=== PATIENT | male | born 1945 | race Two or more races ===

== ENCOUNTER → 2017-09-14 | Outpatient (CLI) | payer OTHER ==
[2017-09-14 09:34] LABS: Basophils # (auto) 0.1 uL; Basophils % (auto) 1.2 % (0.0-2.0); Eosinophils # (auto) 0.4 uL; Eosinophils % (auto) 6.1 % (0.0-7.0); Hematocrit 26.2 % (41.0-53.0); Hemoglobin 8.8 g/dL (13.5-17.5); Lymphocytes # (auto) 1.2 uL; Lymphocytes % (auto) 18.1 % (10.0-50.0); Mean Corpuscular Hemoglobin 32.5 pg (28.0-32.0); Mean Corpuscular Hgb Conc. 33.6 g/dL (32.0-36.0); Mean Corpuscular Volume 96.8 fL (80.0-100.0); Monocytes # (auto) 0.6 uL; Monocytes % (auto) 8.9 % (0.0-12.0); Neutrophils # (auto) 4.2 uL; Neutrophils % (auto) 65.7 % (37.0-80.0); Platelet Count (auto) 257 10^3/uL (140-450); Red Blood Cells 2.71 10^6/uL (4.5-5.90); White Blood Cell 6.4 10^3/uL (4.4-10.8)
[2017-09-14 09:49] LABS: Urine Bacteria NONE SEEN /hpf (None Seen); Urine Blood TRACE /uL (Negative); Urine Specific Gravity 1.013 (1.001-1.035); Urine WBC <1 /hpf (0 - 3)
[2017-09-14 09:56] LABS: INR 0.97 (0.9-1.15); Partial Thromboplastin Time 25.8 sec (22.64-33.71); Prothrombin Time 10.6 sec (9.37-12.3)
[2017-09-14 10:02] LABS: Albumin 3.1 g/dL (3.4-5.0); BUN/Creatinine Ratio 5.4; Bilirubin, Total 0.3 mg/dL (0.2-1.0); Calcium 7.4 mg/dL (8.5-10.1); Potassium 3.9 mmol/L (3.5-5.1); Total Protein 7.4 g/dL (6.4-8.2)
== END | disposition home or self-care (01) ==
LOC: LAB 09:01
PROVIDERS: ATTEND Orthopaedic Surgery
DX: S83.271A Complex tear of lateral meniscus, current injury, right knee, initial encounter (principal); M94.261 Chondromalacia, right knee; Z79.01 Long term (current) use of anticoagulants; X58.XXXA Exposure to other specified factors, initial encounter; Y93.89 Activity, other specified; Y92.89 Other specified places as the place of occurrence of the external cause; Y99.8 Other external cause status
CPT/HCPCS: 36415; 80053; 81001; 85025; 85610; 85730

== ENCOUNTER → 2023-08-31 | Outpatient (CLI) | payer MEDICAID ==
[2023-08-31 10:06] LABS: Basophils # (auto) 0.1 10 ^3/uL (0-0.2); Basophils % (auto) 1.2 % (0.0-2.0); Eosinophils # (auto) 0.4 10 ^3/uL (0-0.8); Eosinophils % (auto) 5.8 % (0.0-7.0); Hematocrit 25.6 % (41.0-53.0); Lymphocytes # (auto) 1.2 10 ^3/uL (0.4-5.4); Lymphocytes % (auto) 16.5 % (10.0-50.0); Mean Corpuscular Hemoglobin 32.8 pg (28.0-32.0); Mean Corpuscular Volume 93.6 fL (80.0-100.0); Monocytes # (auto) 0.5 10 ^3/uL (0-1.3); Monocytes % (auto) 7.7 % (0.0-12.0); Neutrophils # (auto) 4.8 10 ^3/uL (1.6-8.6); Neutrophils % (auto) 68.8 % (37.0-80.0); Red Blood Cells 2.74 10^6/uL (4.5-5.90)
[2023-08-31 10:15] LABS: Urine Bacteria NONE SEEN /hpf (None Seen); Urine Blood TRACE /uL (Negative); Urine Clarity Clear (Clear); Urine Color Yellow (Yellow); Urine Protein, UAD 1+ (Negative); Urine Specific Gravity 1.007 (1.001-1.035); Urine Urobilinogen Normal (Negative); Urine WBC <1 /hpf (0 - 3); Urine pH 7.5 (5.0-8.0)
[2023-08-31 10:47] LABS: Alanine Aminotransferase 11 U/L (7-40); Albumin 3.7 g/dL (3.2-4.8); Alkaline Phosphatase 186 U/L (46-116); Anion Gap 8 (5-15); Aspartate Aminotransferase 15 U/L (13-40); BUN/Creatinine Ratio 4.9 (10.0-20.0); Blood Urea Nitrogen 43 mg/dL (9-23); Calcium 8.9 mg/dL (8.5-10.1); Carbon Dioxide 30 mmol/L (20-30); Chloride 100 mmol/L (98-107); Glucose 96 mg/dL (74-106); LDL Cholesterol 115 mg/dL (< 100); Potassium 3.4 mmol/L (3.5-5.1); Sodium 138 mmol/L (136-145); Triglycerides 103 mg/dL (< 150)
[2023-08-31 10:48] LABS: Bilirubin, Total 0.4 mg/dL (0.2-1.0); Cholesterol 194 mg/dL (< 200); HDL Cholesterol 48 mg/dL (40-59); Total Protein 6.7 g/dL (5.7-8.2)
[2023-08-31 12:24] LABS: Uric Acid 4.3 mg/dL (3.7-9.2)
[2023-08-31 12:27] LABS: Magnesium 1.7 mg/dL (1.6-2.6)
[2023-08-31 13:56] LABS: Free T3 2.4 pg/mL (2.3-4.2); Prostate Specific Antigen 0.26 ng/mL (0.0-4.0)
[2023-08-31 13:57] LABS: Free T4 (Free Thyroxine) 0.7 ng/dL (0.89-1.76); T3 Total 1.21 ng/mL (0.60-1.81)
[2023-08-31 13:59] LABS: Folate (Folic Acid) 21.96 ng/mL (>5.38)
== END | disposition home or self-care (01) ==
LOC: LAB 09:43
PROVIDERS: ATTEND Internal Medicine
DX: R78.89 Finding of other specified substances, not normally found in blood (principal); E78.41 Elevated Lipoprotein(a); R68.89 Other general symptoms and signs; R73.09 Other abnormal glucose; E61.2 Magnesium deficiency; R94.6 Abnormal results of thyroid function studies; E79.0 Hyperuricemia without signs of inflammatory arthritis and tophaceous disease; R82.991 Hypocitraturia; E85.9 Amyloidosis, unspecified; R82.90 Unspecified abnormal findings in urine; R82.79 Other abnormal findings on microbiological examination of urine; D51.9 Vitamin B12 deficiency anemia, unspecified
CPT/HCPCS: 36415; 80053; 80061; 81001; 82306; 82607; 82746; 83036; 83735; 83970; 84100; 84153; 84439; 84443; 84480; 84481; 84550; 85025; 87086

== ENCOUNTER 2025-11-08 12:16 | Inpatient (IN) | payer BC, MEDICAID ==
[~2025-11-08] VITALS: Ht 160 cm; Wt 48.4 kg
[2025-11-08 12:27] VITALS: PULSE 74; RESP 14; O2SAT 100
--- NOTE | 2025-11-08 12:33 | ED.PDOC ---
History of Present Illness HPI Comments 80M BIBA w/ prior MHx of ESRD(M,W,F), Uses O2 at home of 2L, HTN, Renal Failure and the c/c of SOB. EMS report on being called by pt's for SOB. When EMS arrived on scene the reports on the pt having SOB and recently getting diagnosed w/ pneumonia 1 week ago. states that the pt went to the dialysis center today and refused to do dialysis on the pt due from having diminished left sided lung sound and was sent home prompting the to call 911. EMS state that when they arrived on scene the pt's O2 tank was at 4L NC at 100%, and en route was at 2L NC at 100%. Pt notes on having a cough. Denies any symptoms at this time. Patient denies any CP, dizziness, numbness, weakness, tingling, fever, chills, or recent fall. Chief Complaint: Shortness of Breath Time Seen by MD: 12:30 Reviewed Notes: Nurses Notes, Rotary Helper Notes, Medications, Allergies Allergies: Coded Allergies: NO KNOWN ALLERGIES (Unverified , 11/08/25) Information Source: Patient, Emergency Med Personnel Mode of Arrival: EMS Severity: Moderate Timing: Days Duration: Since onset, Days Prehospital treatment: None Past Medical History PAST MEDICAL HISTORY: ESRD (M, W, F), HTN Past Medical History (Other): Uses 2L O2 which is baseline, Renal Failure Surgical History: Denies all surgeries Family History Family History: Reviewed,noncontributory to illness, Unknown Social History Smoker: Non-Smoker Alcohol: Denies ETOH Use Drugs: Denies Drug Use Lives In: Home Constitutional: denies: chills, diaphoresis, fatigue, fever, malaise, sweats, weakness, others EENTM: denies: blurred vision, double vision, ear bleeding, ear discharge, ear drainage, ear pain, ear ringing, eye pain, eye redness, hearing loss, mouth pain, mouth swelling, nasal discharge, nose bleeding, nose congestion, nose pain, photophobia, tearing, throat pain, throat swelling, voice changes, others Respiratory: reports: cough, shortness of breath; denies: hemoptysis, orthopnea, SOB at rest, SOB with excertion, stridor, wheezing, others Cardiovascular: denies: chest pain, dizzy spells, diaphoresis, Dyspnea on exertion, edema, irregular heart beat, left arm pain, lightheadedness, palpitations, PND, syncope, others Gastrointestinal: denies: abdomen distended, abdominal pain, blood streaked bowels, constipated, diarrhea, dysphagia, difficulty swallowing, hematemesis, melena, nausea, poor appetite, poor fluid intake, rectal bleeding, rectal pain, vomiting, others Genitourinary: denies: burning, dysuria, flank pain, frequency, hematuria, incontinence, penile discharge, penile sore, pain, testicle pain, testicle swelling, urgency, others Neurological: denies: dizziness, fainting, headache, left sided numbness, left sided weakness, numbness, paresthesia, pre-existing deficit, right sided numbness, right sided weakness, seizure, speech problems, tingling, tremors, weakness, others Musculoskeletal: denies: back pain, gout, joint pain, joint swelling, muscle pain, muscle stiffness, neck pain, others Integumetry: denies: bruises, change in color, change in hair/nails, dryness, laceration, lesions, lumps, rash, wounds, others Allergic/Immunocompromised: denies: Difficulty Healing, Frequent Infections, Hives, Itching, others Hematologic/Lymphatic: denies: anemia, blood clots, easy bleeding, easy bruising, swollen glands, others Endocrine: denies: excessive hunger, excessive sweating, excessive thirst, excessive urination, flushing, intolerance to cold, intolerance to heat, unexplained weight gain, unexplained weight loss, others Psychiatric: denies: anxiety, bipolar disorder, depression, hopeless, panic disorder, schizophrenia, sleepless, suicidal, others All Other Systems: Reviewed and Negative Physical Exam Exam Comments diminished left sided lung sound General Appearance: No Apparent Distress, Normal HEENT: Normal ENT Inspection, Pharynx Normal, TMs Normal Neck: Full Range of Motion, Non-Tender, Normal, Normal Inspection Respiratory: Chest Non-Tender, Lungs Clear, No Accessory Muscle Use, No Respiratory Distress, Normal Breath Sounds Cardiovascular: No Edema, No JVD, No Murmur, No Gallop, Normal Peripheral Pulses, Regular Rate/Rhythm Breast Exam: Deferred Gastrointestinal: No Organomegaly, Non Tender, No Pulsatile Mass, Normal Bowel Sounds, Soft Genitalia: Deferred Pelvic: Deferred Rectal: Deferred Extremities: No calf tenderness, Normal capillary refill, Normal inspection, Normal range of motion, Non-tender, No pedal edema Musculoskeletal : Apperance: Normal Neurologic: Alert, flavor tank tender II-XII nml as Tested, No Motor Deficits, Normal Affect, Normal Mood, No Sensory Deficits Cerebellar Function: Normal Reflexes: Normal Skin: Dry, Normal Color, Warm Lymphatic: No Adenopathy Was a procedure done? Was a procedure done?: No Differential Dx Considerations may include: Cough, URI, pneumonia, CHF exacerbation, collapsed lung, X-Ray, Labs, Meds, VS Vital Signs Date Time Temp Pulse Resp B/P (MAP) Pulse Ox O2 Delivery O2 Flow Rate FiO2 11/08/25 13:19 184/84 11/08/25 12:27 74 14 100 Nasal Cannula* 4 36 11/08/25 12:27 97.6 74 17 174/85 (114) 100 97.6 11/08/25 12:20 98.4 77 20 157/73 100 98.4 Lab Test 11/08/25 12:44 Range/Units White Blood Count 6.9 4.4-10.8 10^3/uL Red Blood Count 2.52 L 4.5-5.90 10^6/uL Hemoglobin 8.7 L 13.5-17.5 g/dL Hematocrit 25.6 L 41.0-53.0 % Mean Corpuscular Volume 101.4 H 80.0-100.0 fL Mean Corpuscular Hemoglobin 34.5 H 28.0-32.0 pg Mean Corpuscular Hemoglobin Concent 34.0 32.0-36.0 g/dL Red Cell Distribution Width 14.7 H 11.8-14.3 % Platelet Count 342 140-450 10^3/uL Mean Platelet Volume 6.5 L 6.9-10.8 fL Neutrophils (%) (Auto) 68.2 37.0-80.0 % Lymphocytes (%) (Auto) 11.1 10.0-50.0 % Monocytes (%) (Auto) 13.7 H 0.0-12.0 % Eosinophils (%) (Auto) 5.0 0.0-7.0 % Basophils (%) (Auto) 2.0 0.0-2.0 % Neutrophils # (Auto) 4.7 1.6-8.6 10 ^3/uL Lymphocytes # (Auto) 0.8 0.4-5.4 10 ^3/uL Monocytes # (Auto) 0.9 0-1.3 10 ^3/uL Eosinophils # (Auto) 0.3 0-0.8 10 ^3/uL Basophils # (Auto) 0.1 0-0.2 10 ^3/uL Nucleated Red Blood Cells 0.1 % Sodium Level 139 136-145 mmol/L Potassium Level 4.3 3.5-5.1 mmol/L Chloride Level 102 98-107 mmol/L Carbon Dioxide Level 25 20-31 mmol/L Anion Gap 12 5-15 Blood Urea Nitrogen 65 H 9-23 mg/dL Creatinine 12.10 *H 0.700-1.30 mg/dL Glomerular Filtration Rate Calc 4 >90 mL/min BUN/Creatinine Ratio 5.4 L 10.0-20.0 Serum Glucose 80 74-106 mg/dL Calcium Level 9.5 8.7-10.4 mg/dL Total Bilirubin < 0.2 L 0.2-1.0 mg/dL Aspartate Amino Transferase (AST) 18 13-40 U/L Alanine Aminotransferase (ALT) 14 7-40 U/L Alkaline Phosphatase 104 46-116 U/L Total Protein 5.7 5.7-8.2 g/dL Albumin 3.0 L 3.2-4.8 g/dL Current Medications Medications (Trade) Dose Ordered Sig/Eboni Route Start Time Stop Time Status Last Admin Amlodipine Besylate (Norvasc Tablet) 5 mg ONCE ONCE PO 11/08/25 13:15 11/08/25 13:16 DC 11/08/25 13:19 X-Ray, Labs, Meds, VS Comment Patient will be admitted for shortness of breath and pneumonia, failed outpatient treatment Recommend dialysis for next available appointment Patient hemodynamically stable Patient be given azithromycin and Rocephin, breathing treatments, Time of 1ST Reevaluation: 13:00 Reevaluation 1ST: Unchanged Patient Education/Counseling: Diagnosis, Treatment, Prognosis Family Education/Counseling: No Family Present SEPSIS Sepsis Screen Physician Orders Chest Xray 1 View (11/08/25 12:35) Vital Signs Date Time Temp Pulse Resp B/P (MAP) Pulse Ox O2 Delivery O2 Flow Rate FiO2 11/08/25 13:19 184/84 11/08/25 12:27 74 14 100 Nasal Cannula* 4 36 11/08/25 12:27 97.6 74 17 174/85 (114) 100 97.6 11/08/25 12:20 98.4 77 20 157/73 100 98.4 Laboratory Tests Test 11/08/25 12:44 White Blood Count 6.9 10^3/uL (4.4-10.8) Medications Medications Dose Ordered Sig/Eboni Route Start Time Stop Time Status Last Admin Dose Admin Amlodipine Besylate 5 mg ONCE ONCE PO 11/08/25 13:15 11/08/25 13:16 DC 11/08/25 13:19 Departure 1 Departure Time of Disposition: 13:59 Impression: Primary Impression: Shortness of breath Additional Impressions: Pneumonia Qualified Codes: J18.9 - Pneumonia, unspecified organism End stage renal disease Disposition: ADMITTED INPATIENT Condition: Stable Discharged With: Self Critical Care Note Critical Care Time?: No Stability Stability form required: No Heart Score Heart Score: Heart Score Response (Comments) Value History N/A 0 EKG N/A 0 Age N/A 0 Risk Factors N/A 0 Troponin N/A 0 Total 0 I personally scribed for KIERAN WELLER ([email or web address]) on 11/08/25 at 12:33. Electronically submitted by Cyrus Jacinto ([email or web address]). KIERAN WELLER Nov 08, 2025 12:33
[2025-11-08 12:52] LABS: Hematocrit 25.6 % (41.0-53.0); Hemoglobin 8.7 g/dL (13.5-17.5); Mean Corpuscular Hemoglobin 34.5 pg (28.0-32.0); Mean Corpuscular Volume 101.4 fL (80.0-100.0); Nucleated Red Blood Cells % 0.1 %
[2025-11-08 13:09] LABS: Alanine Aminotransferase 14 U/L (7-40); Albumin 3.0 g/dL (3.2-4.8); Alkaline Phosphatase 104 U/L (46-116); Anion Gap 12 (5-15); BUN/Creatinine Ratio 5.4 (10.0-20.0); Bilirubin, Total < 0.2 mg/dL (0.2-1.0); Blood Urea Nitrogen 65 mg/dL (9-23); Calcium 9.5 mg/dL (8.7-10.4); Carbon Dioxide 25 mmol/L (20-31); Chloride 102 mmol/L (98-107); Glucose 80 mg/dL (74-106); Potassium 4.3 mmol/L (3.5-5.1); Sodium 139 mmol/L (136-145); Total Protein 5.7 g/dL (5.7-8.2)
--- NOTE | 2025-11-08 13:28 | DVH ---
CHEST RADIOGRAPH INDICATION: sob TECHNIQUE: Single frontal view of the chest was obtained COMPARISON: XR CHEST 1 VIEW on DOS: 04/16/24 FINDINGS: Lines and Tubes: None Lungs: No focal consolidation. Pleura: No effusion. No pneumothorax. Cardiomediastinal contours: Cardiomegaly Bones: No acute osseous abnormality. IMPRESSION: Cardiomegaly with mild CHF
[2025-11-08] MEDS: ALBUTEROL SULF 2.5 MG/0.5ML(0.5%) NEB SOLN ONE (14:27)
[2025-11-08] MEDS: IPRATROPIUM BROM 0.5 MG/2.5ML INH SOL NEB ONE (14:27)
[2025-11-08] MEDS: IPRATROPIUM BROM 0.5 MG/2.5ML INH SOL ONE (14:27)
[2025-11-08] MEDS: ALBUTEROL SULF 2.5 MG/0.5ML(0.5%) NEB SOLN NEB ONE (14:27)
--- NOTE | 2025-11-08 14:42 | DVHHPRES ---
History of Present Illness Resident Creating Document: FLETCHER GRIFFIN RESIDENT History of Present Illness Dawson Yoo, a 80-year-old male with history of ESRD/renal failure on peritoneal dialysis, peripheral neuropathy, chronic hypoxic respiratory failure home O? at 2?L at baseline, HTN, GERD presents via EMS for shortness of breath after reports worsening SOB and recent left lower lobe pneumonia diagnosis; patient refused dialysis today due to diminished left lung sounds, was sent home by Dr. Ambriz's clinic, prompting EMS call; currently on 2?L NC with SpO? 100%, notes cough, denies chest pain, dizziness, weakness, fever, chills, or other symptoms. PMHx: ESRD/renal failure on peritoneal dialysis, peripheral neuropathy, chronic hypoxic respiratory failure home O? at 2?L at baseline, HTN, GERD PSHx: Denies all surgeries Family history: Reviewed, noncontributory to illness, Unknown Social history: Patient is a non-smoker, denies alcohol and drug use, and lives at home with and father. Review of Systems Constitutional: Yes: Chills, Sweats, Malaise; No: Fever, Weakness, Other Eyes: No: Pain, Vision change, Conjunctivae inflammation, Eyelid inflammation, Other, Redness ENT: No: Ear pain, Ear discharge, Nose pain, Nose discharge, Nose congestion, Mouth pain, Mouth swelling, Throat pain, Throat swelling, Other Respiratory: Cough, Shortness of breath; No: Dry, SOB with excertion, Wheezing, Hemoptysis, Pleuritic Pain, Sputum, Wheezing, Other Cardiovascular: No: Chest Pain, Palpitations, Orthopnea, Paroxysmal Noc. Dyspnea, Edema, Lt Headedness, Other Gastrointestinal: No: Nausea, Vomiting, Abdominal Pain, Diarrhea, Constipation, Melena, Hematochezia, Other Genitourinary: No Dysuria, No Frequency, No Incontinence, No Hematuria, No Retention, No Other Musculoskeletal: No: other, neck pain, shoulder pain, arm pain, back pain, hand pain, leg pain, foot pain Skin: No: Rash, Lesions, Jaundice, Bruising, Other Neurological: No: Weakness, Numbness, Incoordination, Change in speech, Confusion, Seizures, Other Allergies: Coded Allergies: NO KNOWN ALLERGIES (Unverified , 11/08/25) Medications Current Medications Medications Dose Ordered Sig/Eboni Route Start Time Stop Time Status Last Admin Dose Admin Sodium Chloride 1,000 ml @ 120 mls/hr Q8H20M IV 11/08/25 14:45 UNV Acetaminophen/ Hydrocodone Bitart 1 tab Q4HP PRN PO 11/08/25 14:45 UNV Docusate Sodium 100 mg BIDPRN PRN PO 11/08/25 14:45 UNV Acetaminophen 650 mg Q6HP PRN PO 11/08/25 14:45 UNV Morphine Sulfate 2 mg Q4HPRN PRN IV 11/08/25 14:45 UNV Nitroglycerin 0.4 mg Q5MINP PRN SL 11/08/25 14:45 UNV Morphine Sulfate 2 mg Q30M PRN IV 11/08/25 14:45 UNV Exam Vital Signs Vital Signs Date Time Temp Pulse Resp B/P (MAP) Pulse Ox O2 Delivery O2 Flow Rate FiO2 11/08/25 14:28 18 98 Nasal Cannula* 2 28 11/08/25 13:19 184/84 11/08/25 12:27 74 11/08/25 12:27 97.6 97.6 General Appearance: Alert, Oriented X3, Cooperative, mild distress HEENT: Atraumatic, PERRLA, EOMI, Mucous membr. moist/pink Respiratory: Normal air movement, Other (left lower lobes crackles, on 2 L nc) Cardiovascular: Regular rate, Normal S1, Normal S2, No murmurs Abdominal: Normal bowel sounds, Soft, No tenderness, No hepatospenomegaly, No masses Extremities: No clubbing, No cyanosis, No edema, Normal pulses, No tenderness/swelling Skin: No rashes, No breakdown, No significant lesion Neuro: Normal gait, Normal speech, Strength at 5/5 X4 ext, Normal tone, Sensation intact, Cranial nerves 3-12 NL, Reflexes 2+ Psych/Mental Status: Mental status NL, Mood NL Labs/Xrays Labs Test 11/08/25 12:44 Range/Units White Blood Count 6.9 4.4-10.8 10^3/uL Red Blood Count 2.52 L 4.5-5.90 10^6/uL Hemoglobin 8.7 L 13.5-17.5 g/dL Hematocrit 25.6 L 41.0-53.0 % Mean Corpuscular Volume 101.4 H 80.0-100.0 fL Mean Corpuscular Hemoglobin 34.5 H 28.0-32.0 pg Mean Corpuscular Hemoglobin Concent 34.0 32.0-36.0 g/dL Red Cell Distribution Width 14.7 H 11.8-14.3 % Platelet Count 342 140-450 10^3/uL Mean Platelet Volume 6.5 L 6.9-10.8 fL Neutrophils (%) (Auto) 68.2 37.0-80.0 % Lymphocytes (%) (Auto) 11.1 10.0-50.0 % Monocytes (%) (Auto) 13.7 H 0.0-12.0 % Eosinophils (%) (Auto) 5.0 0.0-7.0 % Basophils (%) (Auto) 2.0 0.0-2.0 % Neutrophils # (Auto) 4.7 1.6-8.6 10 ^3/uL Lymphocytes # (Auto) 0.8 0.4-5.4 10 ^3/uL Monocytes # (Auto) 0.9 0-1.3 10 ^3/uL Eosinophils # (Auto) 0.3 0-0.8 10 ^3/uL Basophils # (Auto) 0.1 0-0.2 10 ^3/uL Nucleated Red Blood Cells 0.1 % Sodium Level 139 136-145 mmol/L Potassium Level 4.3 3.5-5.1 mmol/L Chloride Level 102 98-107 mmol/L Carbon Dioxide Level 25 20-31 mmol/L Anion Gap 12 5-15 Blood Urea Nitrogen 65 H 9-23 mg/dL Creatinine 12.10 *H 0.700-1.30 mg/dL Glomerular Filtration Rate Calc 4 >90 mL/min BUN/Creatinine Ratio 5.4 L 10.0-20.0 Serum Glucose 80 74-106 mg/dL Calcium Level 9.5 8.7-10.4 mg/dL Total Bilirubin < 0.2 L 0.2-1.0 mg/dL Aspartate Amino Transferase (AST) 18 13-40 U/L Alanine Aminotransferase (ALT) 14 7-40 U/L Alkaline Phosphatase 104 46-116 U/L Total Protein 5.7 5.7-8.2 g/dL Albumin 3.0 L 3.2-4.8 g/dL SEPSIS Sepsis Screen Date sepsis recognized/suspect: Nov 08, 2025 Time Sepsis recognized/suspect: 1227 Recent Procedure: No On Antibiotic Therapy: No Respiratory Rate >20: No Heart Rate >90: No Temp<36 C (96.8 F) or >38.3 C: No SBP <90 or MAP <65 mmHG: No New Acute Mental Status Change: No Is the patient on CPAP, BIPAP,: No Physician Orders Chest Xray 1 View (11/08/25 12:35) Admit (11/08/25 14:33) Allergies (11/08/25 14:33) Code Status (11/08/25 14:33) Sodium Chloride 0.9% (11/08/25 14:45) Hydrocodone-Acet 5/325mg Tab (Lowry 5/32 (11/08/25 14:45) Docusate Sodium Capsule (Colace Capsule) (11/08/25 14:45) Complete Blood Count (11/09/25 04:00) Comprehensive Metabolic Panel (11/09/25 04:00) Npo (Nothing By Mouth) Diet (11/08/25 Dinner) Echo 2d Mode Cardiac Dop (11/08/25 14:33) Condition: Serious (11/08/25 14:33) Acetaminophen Tablet (Tylenol Tablet) (11/08/25 14:45) Morphine Sulfate Injection (11/08/25 14:45) Sequential Compression Device (11/08/25 ) Nitroglycerin Sublingual (Ntrostat Subli (11/08/25 14:45) Morphine Sulfate Injection (11/08/25 14:45) Oxygen By Nasal Cannula (11/08/25 14:33) Stat Ekg For Chest Pain (11/08/25 14:33) Notify Md Of Changes From Base (11/08/25 14:33) Detailer For 24 Hours (11/08/25 14:33) Emergency Dysrhythmia Protocol (11/08/25 14:33) Rhythm Strips Once Every Shift (11/08/25 14:33) Vital Signs Date Time Temp Pulse Resp B/P (MAP) Pulse Ox O2 Delivery O2 Flow Rate FiO2 11/08/25 14:28 18 98 Nasal Cannula* 2 28 11/08/25 13:19 184/84 11/08/25 12:27 74 14 100 Nasal Cannula* 4 36 11/08/25 12:27 97.6 74 17 174/85 (114) 100 97.6 11/08/25 12:20 98.4 77 20 157/73 100 98.4 Laboratory Tests Test 11/08/25 12:44 White Blood Count 6.9 10^3/uL (4.4-10.8) Medications Medications Dose Ordered Sig/Eboni Route Start Time Stop Time Status Last Admin Dose Admin Albuterol 2.5 mg ONCE ONCE NEB 11/08/25 14:00 11/08/25 14:14 DC 11/08/25 14:27 2.5 MG Amlodipine Besylate 5 mg ONCE ONCE PO 11/08/25 13:15 11/08/25 13:16 DC 11/08/25 13:19 5 MG Ipratropium [place] 0.5 mg ONCE ONCE NEB 11/08/25 14:00 11/08/25 14:14 DC 11/08/25 14:27 0.5 MG Assessment/Plan Assessment/Plan #community-acquired pneumonia: cough, chills, productive sputum, Left lower side, IV antibiotics to continue, sputum culture, rule out viral panel, Rule out possibility of underlying fluid overload state/ CHF with BNP and echo. #ESRD/renal failure on peritoneal dialysis: Follows Dr. Ambriz's group. presentin g creatinine 12. Denies any abdominal discomfort fever or chills. Passing stools. Minimal urine output urinalysis unremarkable. Patient on furosemide 80 mg daily. #acute on chronic hypoxic respiratory failure: home O? at 2?L at baseline, presented with 4L NC. #HTNsive Urgency: Presented with systolic blood pressure of 180s, blood pressure 130/80 or below. Continue antihypertensives. #essential hypertension, uncontrolled: Home medications include lisinopril 20 mg ,amlodipine 10 mg, benazepril 10 . #GERD: At home omeprazole 40 mg, continue oral famotidine. #Anemia of chronic disease: Due to ESRD/ CKD, check TSH, baseline 8-9 of hemoglobin. #osteoarthritis: Age-related, as needed Tylenol. Baseline stability intact, independent for ADLs. #peripheral neuropathy: 300 mg gabapentin t.i.d. diclofenac gel. as needed Lowry 5, complaining of no significant pain. #Moderate protein energy malnutrition PUD prophylaxis: famotidine oral. DVT prophylaxis: SCDs only. not suitable for Lovenox, ideal is heparin. Barriers to discharge: Medical diagnosis and management in progress. Patient lives with family. Independent for ADL. PCP: Dr. Hicks. Specialist Relevant To Admission: nephrology consulted. Case discussed with Dr. Calixto Code Status: Full Code. Discussion needed for goals of care and care plan total 33 minutes bedside. Admitted at telemetry. Plan discussed with: Patient My Orders Orders - FLETCHER GRIFFIN Procedure Category Date Status Time Admit ADMIT 11/08/25 Transmitted 14:33 Allergies [facility] 11/08/25 In Process 14:33 Code Status CODE 11/08/25 Transmitted 14:33 Sodium Chloride 0.9% PHA 11/08/25 Logged 14:45 Hydrocodone-Acet PHA 11/08/25 Logged 5/325mg Tab (Lowry 14:45 Docusate Sodium PHA 11/08/25 Logged Capsule (Colace 14:45 Complete Blood Count LAB 11/09/25 Verified 04:00 Comprehensive LAB 11/09/25 Verified Metabolic Panel 04:00 Npo (Nothing By DIET 11/08/25 Transmitted Mouth) Diet Dinner Echo 2d Mode Cardiac US 11/08/25 Logged DOP 14:33 Condition: Serious [facility] 11/08/25 In Process 14:33 Acetaminophen Tablet PHA 11/08/25 Logged (Tylenol Tablet) 14:45 Morphine Sulfate [facility] 11/08/25 Logged Injection 14:45 Sequential [facility] 11/08/25 In Process Compression Device Nitroglycerin [facility] 11/08/25 Logged Sublingual (Ntrostat 14:45 Morphine Sulfate [facility] 11/08/25 Logged Injection 14:45 Oxygen By Nasal RT 11/08/25 Transmitted Cannula 14:33 Stat Ekg For Chest [facility] 11/08/25 In Process Pain 14:33 Notify Md Of Changes [facility] 11/08/25 In Process From Base 14:33 Detailer For [facility] 11/08/25 In Process 24 Hours 14:33 Emergency Dysrhythmia [facility] 11/08/25 In Process Protocol 14:33 Rhythm Strips Once [facility] 11/08/25 In Process Every Shift 14:33 Date of Service: Nov 08, 2025 Billing Provider: DIANNA CALIXTO MD Common Visit Codes: [id number] INP/OBS CARE (HIGH) Secondary Visit Codes: [id number] CARE PLAN 30 MINUTES FLETCHER GRIFFIN Nov 08, 2025 14:42
[2025-11-08] MEDS ORDERED: DOCUSATE SOD 100 MG CAP PO PRN (14:45)
[2025-11-08] MEDS ORDERED: ACETAMINOPHEN 325 MG TAB PO PRN (14:45)
[2025-11-08] MEDS ORDERED: MORPHINE SULFATE 4 MG/ML SYR/VIAL IV PRN (14:45)
[2025-11-08] MEDS ORDERED: NITROGLYCERIN 0.4 MG SL TAB SL PRN (14:45)
[2025-11-08] MEDS ORDERED: HYDROcodone-ACET 5/325MG TAB PO PRN (14:45)
[2025-11-08] MEDS: AZITHROMYCIN 250 MG TAB PO ONE (15:18)
[2025-11-08] MEDS: SODIUM CHLORIDE 0.9% 1,000 ML IV SCH (15:19)
[2025-11-08] MEDS: methylPREDNISolone SOD SUCC 125 MG/2 ML VL IV ONE (15:21)
[2025-11-08 16:42] VITALS: BP 148/78; PULSE 72; PULSE 74; RESP 16; RESP 18; TEMP 98.2; O2SAT 94
[2025-11-08 20:00] VITALS: PULSE 81
[2025-11-08 21:00] VITALS: BP 165/81; PULSE 78; RESP 19; TEMP 97.7; O2SAT 100
[2025-11-08 21:24] LABS: COVID19 ANTIGEN SOFIA FIA NEGATIVE (NEGATIVE)
[2025-11-08 21:40] LABS: Urine Protein, UAD 1+ (Negative)
[2025-11-09] VITALS (10 sets, daily range): BP systolic 143–176; BP diastolic 70–84; PULSE 68–84; RESP 18–20; TEMP 97.4–98.2; O2SAT 98–100
[2025-11-09] MEDS: ALBUMIN 25% 50 ML IV ONE (02:35)
[2025-11-09] MEDS: GABAPENTIN 300 MG CAP PO SCH (05:06)
[2025-11-09 06:12] LABS: Hematocrit 26.8 % (41.0-53.0); Hemoglobin 9.2 g/dL (13.5-17.5); Mean Corpuscular Hemoglobin 34.7 pg (28.0-32.0); Mean Corpuscular Volume 101.5 fL (80.0-100.0); Nucleated Red Blood Cells % 0.0 %
[2025-11-09 06:32] LABS: Alanine Aminotransferase 16 U/L (7-40); Alkaline Phosphatase 96 U/L (46-116); Anion Gap 13 (5-15); BUN/Creatinine Ratio 6.0 (10.0-20.0); Calcium 10.2 mg/dL (8.7-10.4); Carbon Dioxide 23 mmol/L (20-31); Chloride 101 mmol/L (98-107); Potassium 4.5 mmol/L (3.5-5.1); Sodium 137 mmol/L (136-145); Total Protein 6.3 g/dL (5.7-8.2)
[2025-11-09 06:33] LABS: Albumin 3.4 g/dL (3.2-4.8); Blood Urea Nitrogen 71 mg/dL (9-23); Glucose 121 mg/dL (74-106)
[2025-11-09 06:34] LABS: Bilirubin, Total < 0.2 mg/dL (0.2-1.0)
[2025-11-09] MEDS: Ensure HIGH Protein Chocolate 8oz Bottle PO SCH (08:00)
[2025-11-09] MEDS: LISINOPRIL 20 MG TAB PO SCH (09:13)
[2025-11-09] MEDS: FAMOTIDINE 20 MG TAB PO SCH (09:13)
[2025-11-09] MEDS ORDERED: AMLO1TAB22 PO (10:18)
[2025-11-09] MEDS ORDERED: LISI20TA56 PO (10:18)
[2025-11-09] MEDS: FUROSEMIDE 100 MG/10ML VIAL IV SCH (11:08)
--- NOTE | 2025-11-09 11:52 | DVHPNRES ---
Progress Note Date Seen: Nov 09, 2025 Resident Creating Document: WON KELLER RESIDENT Medical Necessity Reason Pt with a Central, PICC or Fol: No Subjective Review of Systems Mr. 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 The patient states cough began approximately a week prior and is associated with progressively worsening shortness of breath on exertion. He was evaluated by his guyline operator, Dr. Ambriz, who recommended he go to the emergency room for evaluation. He denies any fever, chest pain, nausea, vomiting, generalized weakness, malaise, and palpitations. On evaluation in the ED, he was afebrile, normocardic, normotensive, saturating 97% on 4L NC. The patient states he utilizes oxygen at home sometimes between 2-5L depending on needs. Initial labs macrocytic anemia, elevated creatinine and BUN. Chest xray reads cardiomegaly with mild CHF, however on observation there are mutifocal patches noted. The patient was admitted and started on IV antibiotics. PMHx: Hypertension and ESRD on peritoneal dialysis PSHx: Peritoneal dialysis catheter placement Allergies: Raymon Social: Denies any previous drug, alcohol, and tobacco use. States he lives with his and feels safe. 11/09/2025: Patient seen at bedside. He is AOx4, afebrile, normocardic, normotensive, saturating adequately on 2 L of O2. He is observed to have frequent wet cough. He denies any chest pain, fever, nausea, vomiting, and palpitations. Follow upo labs show elevated ESR, Creatinine, and BUN (however the latter are improved from initial values). Per nurse, overnight patient was hypertensive but this improved on reconciliation of home medications. He was evaluated by Dr. Harp who put orders to reinitiate PD. He will continue on IV antibiotics. Review of Systems: Constitutional: Denies weight loss, fever and chills. HEENT: Denies changes in vision and hearing. Respiratory: Refers shortness of breath and cough Cardiovascular: Denies chest discomfort or palpitations GI: Denies abdominal distention, abdominal pain, diarrhea : Denies dysuria and urinary frequency. Musculoskeletal: denies Skin: Denies rash and pruritus. Neurological: denies dizziness headache vision or hearing problems Objective vital signs Vital Sign Date Time Temp Pulse Resp B/P (MAP) Pulse Ox O2 Delivery O2 Flow Rate FiO2 11/09/25 11:08 168/84 11/09/25 09:14 98.0 78 20 100 98.0 11/09/25 08:00 Room Air* 2 N/A Nasal Cannula* Total Intake and Output 11/08/25 11/08/25 11/09/25 15:00 23:00 07:00 Intake Total 240 ml 200 ml Balance 240 ml 200 ml medications Current Medications Medications Dose Ordered Sig/Eboni Route Start Time Stop Time Status Last Admin Dose Admin Acetaminophen/ Hydrocodone Bitart 1 tab Q4HP PRN PO 11/08/25 14:45 Docusate Sodium 100 mg BIDPRN PRN PO 11/08/25 14:45 Acetaminophen 650 mg Q6HP PRN PO 11/08/25 14:45 Morphine Sulfate 2 mg Q4HPRN PRN IV 11/08/25 14:45 Nitroglycerin 0.4 mg Q5MINP PRN SL 11/08/25 14:45 Morphine Sulfate 2 mg Q30M PRN IV 11/08/25 14:45 Ceftriaxone Sodium 50 ml @ 100 mls/hr DAILY@09 IV 11/09/25 09:00 11/09/25 09:12 100 MLS/HR Amlodipine Besylate 10 mg DAILY PO 11/09/25 10:00 11/09/25 09:12 10 MG Azithromycin 250 ml @ 125 mls/hr DAILY IV 11/09/25 10:00 Furosemide 80 mg DAILY IV 11/09/25 10:00 11/09/25 11:08 80 MG Gabapentin 300 mg TID PO 11/09/25 06:00 11/09/25 05:06 300 MG Famotidine 20 mg Q12HR PO 11/09/25 10:00 Lisinopril 20 mg DAILY PO 11/09/25 10:00 Aspirin 81 mg DAILY PO 11/09/25 10:00 Enteral Nutritional Formula 240 ml TIDWM PO 11/09/25 08:00 Examination General: The patient alert and oriented in person place and time. Patient following commands HEENT: Normocephalic, atraumatic, normal reactive pupils, EOM intact, pink conjunctiva, pink moist mucous membrane Respiratory/pulmonary: During physical exam patient is heard to have wet cough, bilateral chest expansion, no pain on palpation of chest wall, decreased breath sounds mainly lower left lobe. Cardiovascular: Normal RRR, normal S1 and S2, no murmurs Abdomen: Presence peritoneal dialysis catheter, abdomen nondistended, normal bowel sounds, soft, there is no pain to palpation in any of the abdominal quadrants, no palpable masses. Extremities: No deformities, there is no peripheral edema present at the lower extremities, normal pulses Skin: No rashes or pruritus, there is no sacral edema present at this time. Neurological: Intact cranial nerves with no focal neurologic deficits laboratory and microbiology Laboratory Tests 11/09/25 05:25 Test 11/09/25 05:25 Range/Units Serum Glucose 121 H 74-106 mg/dL Problem List/Assessment/Plan Problem List/Assessment/Plan Assessment and Plan Pneumonia (gram positive/gram negative) - Ceftriaxone 1 g IV daily - Azithromycin 500 mg IV daily - Supplemental O2 as needed Acute hypoxic respiratory failure secondary to above - As above - Albuterol 1.25 mg medneb q6 hours PRN - Ipratropium 0.5 mg medned q6 hours PRN ESRD on peritoneal dialysis - Nephrology is on board, per Dr. 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 FULL CODE. Case discussed with Dr. Lima Plan discussed with: Patient, Other (Nurse) Visit Coding STANDARD RES Billing Provider: SHLOMO LIMA MD Date of Service if different f: Nov 09, 2025 Common Visit Codes: [id number] INP/OBS CARE(MOD) WON KELLER RESIDENT Nov 09, 2025 11:52
--- NOTE | 2025-11-09 13:21 | DVHINCON2 ---
Date of service: Nov 09, 2025 Referring Physician Luan Sepulveda Reason for Consultation Dialysis History of Present Illness 80 Y/O M with history of ESRD on PD, HTN, and recent recurrent Peritonitis secondary to MRSA infection presented with chief complaint of SOB which has been progressively worsening. He saw his primary tunnel elastic operator lockstitch Dr. Ambriz at his monthly PD clinic, and due to worsening SOB, and diminished breath sounds concerning for a non-resolving pneumonia he was asked to go to the ER. Hb: 9.2, K: 4.5 mmol/l. CXR shows pulmonary congestion. Nephrology consulted for maintenance of dialysis. Past Medical History ESRD on PD HTN Anemia Past Surgical History PD cath placement Allergies: Coded Allergies: NO KNOWN ALLERGIES (Unverified , 11/08/25) Home Meds Reported Medications Amlodipine Besylate (Amlodipine Besylate) 5 Mg Tab, 10 MG PO DAILY for 30 Days, MG 11/09/25 Lisinopril (Lisinopril) 20 Mg Tab, 20 MG PO DAILY for 30 Days, MG 11/09/25 Current Medications Current Medications Medications (Trade) Dose Ordered Sig/Eboni Route PRN Reason Start Time Stop Time Status Last Admin Sodium Chloride 1,000 ml @ 120 mls/hr Q8H20M IV 11/08/25 14:45 11/08/25 18:59 DC 11/08/25 15:19 Acetaminophen/ Hydrocodone Bitart ([place] 5/325MG Tab) 1 tab Q4HP PRN PO MODERATE PAIN (4-6 PAIN SCALE) 11/08/25 14:45 Docusate Sodium (Colace Capsule) 100 mg BIDPRN PRN PO FOR CONSTIPATION 11/08/25 14:45 Acetaminophen (Tylenol Tablet) 650 mg Q6HP PRN PO PAIN SCALE 1-3 OR TEMP>100.4 11/08/25 14:45 Morphine Sulfate 2 mg Q4HPRN PRN IV SEVERE PAIN (7-10 PAIN SCALE) 11/08/25 14:45 Nitroglycerin (Ntrostat Sublingual) 0.4 mg Q5MINP PRN SL FOR CHEST PAIN 11/08/25 14:45 Morphine Sulfate 2 mg Q30M PRN IV FOR CHEST PAIN 11/08/25 14:45 Ceftriaxone Sodium 50 ml @ 100 mls/hr DAILY@09 IV 11/09/25 09:00 11/09/25 09:12 Azathioprine (Imuran Tablet) 50 mg DAILY PO 11/09/25 10:00 11/09/25 01:18 DC Amlodipine Besylate (Norvasc Tablet) 10 mg DAILY PO 11/09/25 10:00 11/09/25 09:12 Azithromycin 250 ml @ 125 mls/hr DAILY IV 11/09/25 10:00 Furosemide (Lasix Injection) 80 mg DAILY IV 11/09/25 10:00 11/09/25 11:08 Gabapentin (Neurontin Capsule) 300 mg TID PO 11/09/25 06:00 11/09/25 05:06 Famotidine (Pepcid Tablet) 20 mg Q12HR PO 11/09/25 10:00 Lisinopril (Zestril Tablet) 20 mg DAILY PO 11/09/25 10:00 Aspirin 81 mg DAILY PO 11/09/25 10:00 Enteral Nutritional Formula (Ensure High Protein) 240 ml TIDWM PO 11/09/25 08:00 Review of Systems as per HPI, all other systems were reviewed and are negative. H&P Exam Vital Signs/I&O Vital Sign Date Time Temp Pulse Resp B/P (MAP) Pulse Ox O2 Delivery O2 Flow Rate FiO2 11/09/25 11:08 168/84 11/09/25 09:14 98.0 78 20 100 98.0 11/09/25 08:00 Room Air* 2 N/A Nasal Cannula* Intake and Output 11/08/25 11/09/25 19:00 07:00 Intake Total 0 ml 440 ml Balance 0 ml 440 ml Intake Oral 0 ml 440 ml # Voids 2 Physical Exam Gen: NAD, AAOx3 HEENT: NC, AT Lungs: crackles lung bases Cardiac: RRR Abd: soft, no distention. + PD catheter Neuro: no focal deficits Ext: no edema Labs/Diagnostic Data Labs/Diagnostic Data Laboratory Tests Test 11/09/25 06:29 11/09/25 05:25 11/09/25 01:54 11/08/25 21:06 Range/Units Influenza Type A Antigen Negative Negative Influenza Type B Antigen Negative Negative White Blood Count 5.5 4.4-10.8 10^3/uL Red Blood Count 2.64 L 4.5-5.90 10^6/uL Hemoglobin 9.2 L 13.5-17.5 g/dL Hematocrit 26.8 L 41.0-53.0 % Mean Corpuscular Volume 101.5 H 80.0-100.0 fL Mean Corpuscular Hemoglobin 34.7 H 28.0-32.0 pg Mean Corpuscular Hemoglobin Concent 34.2 32.0-36.0 g/dL Red Cell Distribution Width 14.6 H 11.8-14.3 % Platelet Count 341 140-450 10^3/uL Mean Platelet Volume 7.0 6.9-10.8 fL Neutrophils (%) (Auto) 91.5 H 37.0-80.0 % Lymphocytes (%) (Auto) 7.2 L 10.0-50.0 % Monocytes (%) (Auto) 1.1 0.0-12.0 % Eosinophils (%) (Auto) 0.0 0.0-7.0 % Basophils (%) (Auto) 0.2 0.0-2.0 % Neutrophils # (Auto) 5.1 1.6-8.6 10 ^3/uL Lymphocytes # (Auto) 0.4 0.4-5.4 10 ^3/uL Monocytes # (Auto) 0.1 0-1.3 10 ^3/uL Eosinophils # (Auto) 0 0-0.8 10 ^3/uL Basophils # (Auto) 0 0-0.2 10 ^3/uL Nucleated Red Blood Cells 0.0 % Sodium Level 137 136-145 mmol/L Potassium Level 4.5 3.5-5.1 mmol/L Chloride Level 101 98-107 mmol/L Carbon Dioxide Level 23 20-31 mmol/L Anion Gap 13 5-15 Blood Urea Nitrogen 71 H 9-23 mg/dL Creatinine 11.86 *H 0.700-1.30 mg/dL Glomerular Filtration Rate Calc 4 >90 mL/min BUN/Creatinine Ratio 6.0 L 10.0-20.0 Serum Glucose 121 H 74-106 mg/dL Calcium Level 10.2 8.7-10.4 mg/dL Total Bilirubin < 0.2 L 0.2-1.0 mg/dL Aspartate Amino Transferase (AST) 22 13-40 U/L Alanine Aminotransferase (ALT) 16 7-40 U/L Alkaline Phosphatase 96 46-116 U/L Total Protein 6.3 5.7-8.2 g/dL Albumin 3.4 3.2-4.8 g/dL B-Type Natriuretic Peptide 1391.07 0-100 pg/mL Thyroid Stimulating Hormone (TSH) 24.40 H 0.55-4.78 uIU/mL Free Thyroxine (T4) Calculated 0.62 L 0.89-1.76 ng/dL Urine Color Colorless Yellow Urine Clarity Clear Clear Urine pH 7.5 5.0-9.0 Urine Specific [place] 1.008 1.001-1.035 Urine Protein 1+ H Negative Urine Ketones Negative Negative Urine Blood Trace H Negative /uL Urine Nitrite Negative Negative Urine Bilirubin Negative Negative Urine Urobilinogen Normal Negative mg/dL Urine Leukocyte Esterase Negative Negative /uL Urine RBC None seen 0 - 3 /hpf Urine Microscopic WBC 1 0-3 /HPF Urine Squamous Epithelial Cells None seen <5 /hpf Urine Bacteria Few H None Seen /hpf Urine Glucose Trace Normal mg/dL Test 11/08/25 19:50 11/08/25 12:44 Range/Units SARS-CoV-2 Antigen (Rapid) Negative NEGATIVE White Blood Count 6.9 4.4-10.8 10^3/uL Red Blood Count 2.52 L 4.5-5.90 10^6/uL Hemoglobin 8.7 L 13.5-17.5 g/dL Hematocrit 25.6 L 41.0-53.0 % Mean Corpuscular Volume 101.4 H 80.0-100.0 fL Mean Corpuscular Hemoglobin 34.5 H 28.0-32.0 pg Mean Corpuscular Hemoglobin Concent 34.0 32.0-36.0 g/dL Red Cell Distribution Width 14.7 H 11.8-14.3 % Platelet Count 342 140-450 10^3/uL Mean Platelet Volume 6.5 L 6.9-10.8 fL Neutrophils (%) (Auto) 68.2 37.0-80.0 % Lymphocytes (%) (Auto) 11.1 10.0-50.0 % Monocytes (%) (Auto) 13.7 H 0.0-12.0 % Eosinophils (%) (Auto) 5.0 0.0-7.0 % Basophils (%) (Auto) 2.0 0.0-2.0 % Neutrophils # (Auto) 4.7 1.6-8.6 10 ^3/uL Lymphocytes # (Auto) 0.8 0.4-5.4 10 ^3/uL Monocytes # (Auto) 0.9 0-1.3 10 ^3/uL Eosinophils # (Auto) 0.3 0-0.8 10 ^3/uL Basophils # (Auto) 0.1 0-0.2 10 ^3/uL Nucleated Red Blood Cells 0.1 % Erythrocyte Sedimentation Rate 110 H 0-20 mm/hr Sodium Level 139 136-145 mmol/L Potassium Level 4.3 3.5-5.1 mmol/L Chloride Level 102 98-107 mmol/L Carbon Dioxide Level 25 20-31 mmol/L Anion Gap 12 5-15 Blood Urea Nitrogen 65 H 9-23 mg/dL Creatinine 12.10 *H 0.700-1.30 mg/dL Glomerular Filtration Rate Calc 4 >90 mL/min BUN/Creatinine Ratio 5.4 L 10.0-20.0 Serum Glucose 80 74-106 mg/dL Calcium Level 9.5 8.7-10.4 mg/dL Total Bilirubin < 0.2 L 0.2-1.0 mg/dL Aspartate Amino Transferase (AST) 18 13-40 U/L Alanine Aminotransferase (ALT) 14 7-40 U/L Alkaline Phosphatase 104 46-116 U/L C-Reactive Protein High Sensitivity 1.85 H <1.0 mg/dL Total Protein 5.7 5.7-8.2 g/dL Albumin 3.0 L 3.2-4.8 g/dL Assessment ESRD on PD Community acquired pneumonia HTN recent PD peritonitis, treated as outpatient Anemia of CKD Fluid overload Acute on chronic diastolic CHF Hyperphosphatemia Secondary hyperparathyroidism Plan: Start manual PD, q6h, 2 L fill volume, 2.5 % dianeal Fluid restriction on Azithromycin, and ceftriaxone per primary team obtain PD fluid cell count, gram stain , and culture Continue Lisinopril 20 mg daily , and Amlodipine 10 mg daily Plan discussed with: Patient, Spouse ILANA DAMIAN MD Nov 09, 2025 13:21
[2025-11-09] MEDS: AZITHROMYCIN 500MG/250ML 250 ML IV SCH (13:55)
[2025-11-09] MEDS: ALBUTEROL SULF 2.5 MG/0.5ML(0.5%) NEB SOLN NEB ONE (18:15)
[2025-11-09] MEDS: IPRATROPIUM BROM 0.5 MG/2.5ML INH SOL NEB ONE (18:15)
[2025-11-09] MEDS: PERITONEAL DIALYSIS 2.5% SOLN 2,000 ML IP SCH (20:28)
[2025-11-09] MEDS: HEPARIN SODIUM (PORCINE) 5000 UNITS/ML 1ML VIAL SC SCH (21:12)
[2025-11-10] VITALS (12 sets, daily range): BP systolic 123–159; BP diastolic 36–83; PULSE 58–71; RESP 17–20; TEMP 96.8–98.6; O2SAT 93–100
[2025-11-10] MEDS: ALBUTEROL SULF 2.5 MG/0.5ML(0.5%) NEB SOLN NEB PRN (01:53)
[2025-11-10] MEDS: IPRATROPIUM BROM 0.5 MG/2.5ML INH SOL NEB PRN (01:53)
--- NOTE | 2025-11-10 09:05 | DVHSR ---
APPROVED REPORT EXAM: Two-dimensional and M-mode echocardiogram with Doppler and color Doppler. Blood Pressure: 184/84 mmHg INDICATION Rule out structural heart disease and LVEF RISK FACTORS Height: 63, Weight: 143 DIMENSIONS LVDd 5.2 (3.8-5.7cm) LA (2D) 4.2 (1.9-4.0cm) Aortic Root 3.7 (2.0-3.7cm) LVDs 3.9 (2.5-4.0cm) LA (MM) (1.9-4.0cm) Aortic Cusp Exc 2.0 (1.5-2.0cm) EF (%) 50.0 (55-70%) Rt. Atrium 4.0 (1.9-4.0cm) Asc. Aorta cm Mitral Valve Mitral Mitral Stenosis E wave 0.64m/s MV Mean GR. 3mmHg A wave 1.27m/s MV Peak GR. 159mmHg E/A ratio 0.5 2D MVA cm2 DECEL Time 215ms PRESS 1/2 Time ms Aortic Valve Aortic Valve Aortic Stenosis V1 0.97m/s AO Mean GR. 3mmHg V2 1.26m/s AO Peak GR. 6mmHg LVOT Diameter 2.2 (1.8-2.4cm) Doppler SEBASTIAN 2.92cm2 Pulmonic Valve V2 0.80m/s Tricuspid Valve TR Velocity 2.35m/s RVSP 31mmHg Other Information Quality : Technically Limited Rhythm : Conclusion LVEF is borderline at 45-50%, mild global hypokinesis, mild to moderate left ventricular hypertrophy right ventricle size and function is normal left atrium is mildly dilated
[2025-11-10 11:49] LABS: Hematocrit 23.9 % (41.0-53.0); Hemoglobin 7.9 g/dL (13.5-17.5); Mean Corpuscular Hemoglobin 34.0 pg (28.0-32.0); Mean Corpuscular Volume 102.2 fL (80.0-100.0); Nucleated Red Blood Cells % 0.0 %
[2025-11-10 12:06] LABS: Chloride 100 mmol/L (98-107); Potassium 4.0 mmol/L (3.5-5.1)
[2025-11-10 12:07] LABS: Anion Gap 12 (5-15); Carbon Dioxide 24 mmol/L (20-31)
[2025-11-10 12:08] LABS: Calcium 9.3 mg/dL (8.7-10.4)
[2025-11-10 12:12] LABS: BUN/Creatinine Ratio 6.1 (10.0-20.0); Blood Urea Nitrogen 69 mg/dL (9-23); Glucose 95 mg/dL (74-106); Sodium 136 mmol/L (136-145)
--- NOTE | 2025-11-10 14:37 | DVHPN2 ---
Progress Note - Dictate Date Seen: Nov 10, 2025 Medical Necessity Reason Pt with a Central, PICC or Fol: No Subjective feeling better vital signs Vital Sign Date Time Temp Pulse Resp B/P (MAP) Pulse Ox O2 Delivery O2 Flow Rate FiO2 11/10/25 13:00 98.6 64 18 127/36 (66) 100 98.6 11/10/25 10:00 Nasal Cannula* 2 28 Total Intake and Output 11/09/25 11/09/25 11/10/25 15:00 23:00 07:00 Intake Total 500 ml 140 ml Balance 500 ml 140 ml medications Current Medications Medications Dose Ordered Sig/Eboni Route Start Time Stop Time Status Last Admin Dose Admin Acetaminophen/ Hydrocodone Bitart 1 tab Q4HP PRN PO 11/08/25 14:45 Acetaminophen 650 mg Q6HP PRN PO 11/08/25 14:45 Morphine Sulfate 2 mg Q30M PRN IV 11/08/25 14:45 Ceftriaxone Sodium 50 ml @ 100 mls/hr DAILY@09 IV 11/09/25 09:00 11/10/25 09:15 100 MLS/HR Amlodipine Besylate 10 mg DAILY PO 11/09/25 10:00 11/10/25 09:16 10 MG Azithromycin 250 ml @ 125 mls/hr DAILY IV 11/09/25 10:00 11/10/25 10:14 125 MLS/HR Furosemide 80 mg DAILY IV 11/09/25 10:00 11/10/25 09:15 80 MG Gabapentin 300 mg TID PO 11/09/25 06:00 11/10/25 14:15 300 MG Famotidine 20 mg Q12HR PO 11/09/25 10:00 11/10/25 09:16 20 MG Lisinopril 20 mg DAILY PO 11/09/25 10:00 Aspirin 81 mg DAILY PO 11/09/25 10:00 11/10/25 09:16 81 MG Enteral Nutritional Formula 240 ml TIDWM PO 11/09/25 08:00 Peritoneal Dialysis Solution 2,000 ml @ 0 mls/hr Q6HR IP 11/09/25 18:00 11/10/25 12:33 0 MLS/HR Albuterol 2.5 mg Q6HPRN PRN NEB 11/09/25 18:00 11/10/25 01:53 2.5 MG Ipratropium [place] 0.5 mg Q6HPRN PRN NEB 11/09/25 18:00 11/10/25 01:53 0.5 MG Heparin Sodium (Porcine) 5,000 units Q12HR SC 11/09/25 22:00 11/10/25 09:17 5,000 UNITS objective Gen: NAD, AAOx3 HEENT: NC, AT Lungs: crackles lung bases Cardiac: RRR Abd: soft, no distention. + PD catheter Neuro: no focal deficits Ext: no edema laboratory and microbiology Laboratory Tests 11/10/25 11:22 Test 11/10/25 11:22 Range/Units Serum Glucose 95 74-106 mg/dL Assessment/Plan ESRD on PD Community acquired pneumonia HTN recent PD peritonitis, treated as outpatient Anemia of CKD Fluid overload Acute on chronic diastolic CHF Hyperphosphatemia Secondary hyperparathyroidism Plan: continue manual PD, q6h, 2 L fill volume, 2.5 % dianeal He is having adequate UF with each manual , 2.2 L fluid drained after each dwell Fluid restriction on Azithromycin, and ceftriaxone per primary team PD fluid cell count shows WBC 182, but 98%mononuclear. not consistent with peritonitis f/u PD fluid gram stain , and culture Continue Lisinopril 20 mg daily , and Amlodipine 10 mg daily Dietary Evaluation Review Comments: renal Diet with 84-105g protein/d Expected Outcomes/Goals: Recover from peritonitis Plan discussed with: Patient, Other ILANA DAMIAN MD Nov 10, 2025 14:37
--- NOTE | 2025-11-10 18:46 | DVHPNRES ---
Progress Note Date Seen: Nov 10, 2025 Resident Creating Document: WON KELLER RESIDENT Medical Necessity Reason Pt with a Central, PICC or Fol: No Subjective Review of Systems Mr. Yoo is a 80 year old male with prior medical history of hypertension and ERSD in peritoneal dialysis for 14 years, who presented to [facility] with chief complaint of cough and shortness of breath. The patient states cough began approximately a week prior and is associated with progressively worsening shortness of breath on exertion. He was evaluated by his saddle tree stitcher, Dr. Ambriz, who recommended he go to the emergency room for evaluation. He denies any fever, chest pain, nausea, vomiting, generalized weakness, malaise, and palpitations. On evaluation in the ED, he was afebrile, normocardic, normotensive, saturating 97% on 4L NC. The patient states he utilizes oxygen at home sometimes between 2-5L depending on needs. Initial labs macrocytic anemia, elevated creatinine and BUN. Chest xray reads cardiomegaly with mild CHF, however on observation there are mutifocal patches noted. The patient was admitted and started on IV antibiotics and breathing treatments. He was evaluated by nephrology who restarted his peritoneal dialysis. PMHx: Hypertension and ESRD on peritoneal dialysis PSHx: Peritoneal dialysis catheter placement Allergies: Raymon Social: Denies any previous drug, alcohol, and tobacco use. States he lives with his and feels safe. 11/10/2025: Patient seen at bedside. Per nurse, no adverse events overngiht to report on. He is AOx4, afebrile, normocardic, normotensive, saturating adequately on 2 L of O2. He states his cough and shortness of breath have improved. He has reinitiated his PD. Echocardiogram shows LVEF is borderline at 45-50%, mild global hypokinesis, mild to moderate left ventricular hypertrophy, right ventricle size and function is normal, left atrium is mildly dilated. Possible discharge tomorrow. Objective vital signs Vital Sign Date Time Temp Pulse Resp B/P (MAP) Pulse Ox O2 Delivery O2 Flow Rate FiO2 11/10/25 14:50 98.6 58 20 123/54 (77) 95 98.6 11/10/25 10:00 Nasal Cannula* 2 28 Total Intake and Output 11/09/25 11/09/25 11/10/25 15:00 23:00 07:00 Intake Total 500 ml 140 ml Balance 500 ml 140 ml medications Current Medications Medications Dose Ordered Sig/Eboni Route Start Time Stop Time Status Last Admin Dose Admin Acetaminophen/ Hydrocodone Bitart 1 tab Q4HP PRN PO 11/08/25 14:45 Acetaminophen 650 mg Q6HP PRN PO 11/08/25 14:45 Morphine Sulfate 2 mg Q30M PRN IV 11/08/25 14:45 Ceftriaxone Sodium 50 ml @ 100 mls/hr DAILY@09 IV 11/09/25 09:00 11/10/25 09:15 100 MLS/HR Amlodipine Besylate 10 mg DAILY PO 11/09/25 10:00 11/10/25 09:16 10 MG Azithromycin 250 ml @ 125 mls/hr DAILY IV 11/09/25 10:00 11/10/25 10:14 125 MLS/HR Furosemide 80 mg DAILY IV 11/09/25 10:00 11/10/25 09:15 80 MG Gabapentin 300 mg TID PO 11/09/25 06:00 11/10/25 14:15 300 MG Famotidine 20 mg Q12HR PO 11/09/25 10:00 11/10/25 09:16 20 MG Aspirin 81 mg DAILY PO 11/09/25 10:00 11/10/25 09:16 81 MG Enteral Nutritional Formula 240 ml TIDWM PO 11/09/25 08:00 Peritoneal Dialysis Solution 2,000 ml @ 0 mls/hr Q6HR IP 11/09/25 18:00 11/10/25 12:33 0 MLS/HR Albuterol 2.5 mg Q6HPRN PRN NEB 11/09/25 18:00 11/10/25 01:53 2.5 MG Ipratropium [place] 0.5 mg Q6HPRN PRN NEB 11/09/25 18:00 11/10/25 01:53 0.5 MG Heparin Sodium (Porcine) 5,000 units Q12HR SC 11/09/25 22:00 11/10/25 09:17 5,000 UNITS Lisinopril 20 mg HS PO 11/10/25 20:00 Examination General: The patient alert and oriented in person place and time. Patient following commands HEENT: Normocephalic, atraumatic, normal reactive pupils, EOM intact, pink conjunctiva, pink moist mucous membrane Respiratory/pulmonary: During physical exam patient is heard to have wet cough, bilateral chest expansion, no pain on palpation of chest wall, decreased breath sounds mainly lower left lobe. Cardiovascular: Normal RRR, normal S1 and S2, no murmurs Abdomen: Presence peritoneal dialysis catheter, abdomen nondistended, normal bowel sounds, soft, there is no pain to palpation in any of the abdominal quadrants, no palpable masses. Extremities: No deformities, there is no peripheral edema present at the lower extremities, normal pulses Skin: No rashes or pruritus, there is no sacral edema present at this time. Neurological: Intact cranial nerves with no focal neurologic deficits laboratory and microbiology Laboratory Tests 11/10/25 11:22 Test 11/10/25 11:22 Range/Units Serum Glucose 95 74-106 mg/dL Problem List/Assessment/Plan Problem List/Assessment/Plan Assessment and Plan Pneumonia (gram positive/gram negative) - Ceftriaxone 1 g IV daily - Azithromycin 500 mg IV daily - Supplemental O2 as needed Acute hypoxic respiratory failure secondary to above - As above - Albuterol 1.25 mg medneb q6 hours PRN - Ipratropium 0.5 mg medned q6 hours PRN ESRD on peritoneal dialysis - Nephrology is on board, per Dr. Harp, orders to restarted manual peritoneal dialysis - Due to recent history of recurrent peritonitis due to MRSA, cultures have been ordered - Monitor renal function -Avoid nephrotoxic drugs Possible acute on chronic HFpEF -Echocardiogram: LVEF is borderline at 45-50%, mild global hypokinesis, mild to moderate left ventricular hypertrophy right ventricle size and function is normal, left atrium is mildly dilated. Macrocytic anemia, likely chronic and due to above - Monitor H and H Hypertension - Monitor BP - Amlodipine 10 mg PO daily - Lisinopril 20 mg PO daily DVT prophylaxis: Heparin GI prophylaxis: Not indicated Nutrition: Renal diet Goals of care discussed with the patient for over 32 minutes. FULL CODE. Case discussed with Dr. Lima Plan discussed with: Patient, Other (Nurse) My Orders My Orders Orders - WON KELLER Procedure Category Date Status Time Mrsa Screen SUE 11/09/25 In Process 22:59 Lisinopril Tablet PHA 11/10/25 In Process (Zestril Tablet) 20:00 Dietary Evaluation Review Comments: renal Diet with 84-105g protein/d Expected Outcomes/Goals: Recover from peritonitis Visit Coding STANDARD RES Billing Provider: SHLOMO LIMA MD Date of Service if different f: Nov 10, 2025 Common Visit Codes: [id number] INP/OBS CARE(MOD) KRISHNALEONARD RESIDENT Nov 10, 2025 18:46
[2025-11-10] MEDS: LISINOPRIL 20 MG TAB PO SCH (22:00)
[2025-11-11] VITALS (8 sets, daily range): BP systolic 125–143; BP diastolic 56–79; PULSE 56–65; RESP 18–20; TEMP 37; O2SAT 96–100
--- NOTE | 2025-11-11 07:13 | DVHPN2 ---
Progress Note - Dictate Date Seen: Nov 11, 2025 Medical Necessity Reason Pt with a Central, PICC or Fol: No Subjective feeling much better vital signs Vital Sign Date Time Temp Pulse Resp B/P (MAP) Pulse Ox O2 Delivery O2 Flow Rate FiO2 11/11/25 05:00 96.7 62 18 125/71 (89) 100 96.7 11/11/25 01:44 Nasal Cannula* 2 28 Total Intake and Output 11/10/25 11/10/25 11/11/25 15:00 23:00 07:00 Intake Total 2300 ml 980 ml 2500 ml Balance 2300 ml 980 ml 2500 ml medications Current Medications Medications Dose Ordered Sig/Eboni Route Start Time Stop Time Status Last Admin Dose Admin Acetaminophen/ Hydrocodone Bitart 1 tab Q4HP PRN PO 11/08/25 14:45 Acetaminophen 650 mg Q6HP PRN PO 11/08/25 14:45 Morphine Sulfate 2 mg Q30M PRN IV 11/08/25 14:45 Ceftriaxone Sodium 50 ml @ 100 mls/hr DAILY@09 IV 11/09/25 09:00 11/10/25 09:15 100 MLS/HR Amlodipine Besylate 10 mg DAILY PO 11/09/25 10:00 11/10/25 09:16 10 MG Azithromycin 250 ml @ 125 mls/hr DAILY IV 11/09/25 10:00 11/10/25 10:14 125 MLS/HR Furosemide 80 mg DAILY IV 11/09/25 10:00 11/10/25 09:15 80 MG Gabapentin 300 mg TID PO 11/09/25 06:00 11/11/25 06:55 300 MG Famotidine 20 mg Q12HR PO 11/09/25 10:00 11/10/25 22:01 20 MG Aspirin 81 mg DAILY PO 11/09/25 10:00 11/10/25 09:16 81 MG Enteral Nutritional Formula 240 ml TIDWM PO 11/09/25 08:00 Peritoneal Dialysis Solution 2,000 ml @ 0 mls/hr Q6HR IP 11/09/25 18:00 11/11/25 06:00 0 MLS/HR Albuterol 2.5 mg Q6HPRN PRN NEB 11/09/25 18:00 11/11/25 01:44 2.5 MG Ipratropium [place] 0.5 mg Q6HPRN PRN NEB 11/09/25 18:00 11/11/25 01:44 0.5 MG Heparin Sodium (Porcine) 5,000 units Q12HR SC 11/09/25 22:00 11/10/25 22:08 5,000 UNITS Lisinopril 20 mg HS PO 11/10/25 20:00 11/10/25 22:01 20 MG objective Gen: NAD, AAOx3 HEENT: NC, AT Lungs: crackles lung bases Cardiac: RRR Abd: soft, no distention. + PD catheter Neuro: no focal deficits Ext: no edema laboratory and microbiology Test 11/11/25 06:50 Range/Units Serum Glucose Pending Assessment/Plan ESRD on PD Community acquired pneumonia HTN recent PD peritonitis, treated as outpatient Anemia of CKD Fluid overload Acute on chronic diastolic CHF Hyperphosphatemia Secondary hyperparathyroidism Plan: continue manual PD, q6h, 2 L fill volume, 2.5 % dianeal He is having adequate UF with each manual , last Dwell drained 2.7 L Fluid restriction on Azithromycin, and ceftriaxone per primary team PD fluid cell count shows WBC 182, but 98%mononuclear. not consistent with peritonitis f/u PD fluid gram stain , and culture Continue Lisinopril 20 mg daily , and Amlodipine 10 mg daily Dietary Evaluation Review Comments: renal Diet with 84-105g protein/d Expected Outcomes/Goals: Recover from peritonitis Plan discussed with: Patient, Other ILANA DAMIAN MD Nov 11, 2025 07:13
[2025-11-11 07:26] LABS: Hematocrit 26.6 % (41.0-53.0); Hemoglobin 8.9 g/dL (13.5-17.5); Mean Corpuscular Hemoglobin 33.8 pg (28.0-32.0); Mean Corpuscular Volume 101.6 fL (80.0-100.0); Nucleated Red Blood Cells % 0.1 %
[2025-11-11 08:44] LABS: Calcium 9.3 mg/dL (8.7-10.4); Potassium 4.0 mmol/L (3.5-5.1)
[2025-11-11] MEDS ORDERED: ONDANSETRON HCL 4 MG/2 ML VIAL IV ONE (08:45)
[2025-11-11 08:51] LABS: BUN/Creatinine Ratio 5.1 (10.0-20.0); Glucose 78 mg/dL (74-106)
[2025-11-11 08:55] LABS: Carbon Dioxide 25 mmol/L (20-31)
[2025-11-11 08:57] LABS: Anion Gap 14 (5-15); Blood Urea Nitrogen 56 mg/dL (9-23); Chloride 96 mmol/L (98-107); Sodium 135 mmol/L (136-145)
[2025-11-11] MEDS ORDERED: LEVO500T91 PO ×2 (11:52→15:16)
--- NOTE | 2025-11-11 13:12 | DVHDSRES ---
Discharge Summary Date of Admission Resident Creating Document: WON KELLER RESIDENT Nov 08, 2025 at 14:33 Date of Discharge: Nov 11, 2025 Admitting Diagnosis Shortness of breath Wounds: No wounds Labs/Diagnostic Data: Laboratory Results Test 11/11/25 06:50 11/10/25 11:22 11/10/25 11:12 11/09/25 21:00 White Blood Count 6.0 10^3/uL (4.4-10.8) Red Blood Count 2.62 10^6/uL (4.5-5.90) Hemoglobin 8.9 g/dL (13.5-17.5) Hematocrit 26.6 % (41.0-53.0) Mean Corpuscular Volume 101.6 fL (80.0-100.0) Mean Corpuscular Hemoglobin 33.8 pg (28.0-32.0) Mean Corpuscular Hemoglobin Concent 33.3 g/dL (32.0-36.0) Red Cell Distribution Width 14.8 % (11.8-14.3) Platelet Count 330 10^3/uL (140-450) Mean Platelet Volume 7.0 fL (6.9-10.8) Neutrophils (%) (Auto) 60.2 % (37.0-80.0) Lymphocytes (%) (Auto) 22.7 % (10.0-50.0) Monocytes (%) (Auto) 10.6 % (0.0-12.0) Eosinophils (%) (Auto) 5.5 % (0.0-7.0) Basophils (%) (Auto) 1.0 % (0.0-2.0) Neutrophils # (Auto) 3.6 10 ^3/uL (1.6-8.6) Lymphocytes # (Auto) 1.4 10 ^3/uL (0.4-5.4) Monocytes # (Auto) 0.6 10 ^3/uL (0-1.3) Eosinophils # (Auto) 0.3 10 ^3/uL (0-0.8) Basophils # (Auto) 0.1 10 ^3/uL (0-0.2) Nucleated Red Blood Cells 0.1 % Sodium Level 135 mmol/L (136-145) Potassium Level 4.0 mmol/L (3.5-5.1) Chloride Level 96 mmol/L (98-107) Carbon Dioxide Level 25 mmol/L (20-31) Anion Gap 14 (5-15) Blood Urea Nitrogen 56 mg/dL (9-23) Creatinine 11.01 mg/dL (0.700-1.30) Glomerular Filtration Rate Calc 4 mL/min (>90) BUN/Creatinine Ratio 5.1 (10.0-20.0) Serum Glucose 78 mg/dL (74-106) Calcium Level 9.3 mg/dL (8.7-10.4) Phosphorus Level 5.4 mg/dL (2.4-5.1) Parathyroid Hormone (Intact) 331.8 pg/mL (18.4-80.1) Vitamin D 25-Hydroxy 27.6 ng/mL (30.0-100) Body Fluid Source Peritoneal fluid Body Fluid WBC (Manual) 182 CUMM (0-200) Body Fluid RBC (Manual) 0 CUMM (0-2000) Body Fluid Mononuclear Cells 98 % Body Fluid Polymorphonuclear Cells 2 % (0-25) Test 11/09/25 06:29 11/09/25 05:25 11/09/25 01:54 11/08/25 21:06 Influenza Type A Antigen Negative (Negative) Influenza Type B Antigen Negative (Negative) Total Bilirubin < 0.2 mg/dL (0.2-1.0) Aspartate Amino Transferase (AST) 22 U/L (13-40) Alanine Aminotransferase (ALT) 16 U/L (7-40) Alkaline Phosphatase 96 U/L (46-116) Total Protein 6.3 g/dL (5.7-8.2) Albumin 3.4 g/dL (3.2-4.8) B-Type Natriuretic Peptide 1391.07 pg/mL (0-100) Thyroid Stimulating Hormone (TSH) 24.40 uIU/mL (0.55-4.78) Free Thyroxine (T4) Calculated 0.62 ng/dL (0.89-1.76) Urine Color Colorless (Yellow) Urine Clarity Clear (Clear) Urine pH 7.5 (5.0-9.0) Urine Specific [place] 1.008 (1.001-1.035) Urine Protein 1+ (Negative) Urine Ketones Negative (Negative) Urine Blood Trace /uL (Negative) Urine Nitrite Negative (Negative) Urine Bilirubin Negative (Negative) Urine Urobilinogen Normal mg/dL (Negative) Urine Leukocyte Esterase Negative /uL (Negative) Urine RBC None seen /hpf (0 - 3) Urine Microscopic WBC 1 /HPF (0-3) Urine Squamous Epithelial Cells None seen /hpf (<5) Urine Bacteria Few /hpf (None Seen) Urine Glucose Trace mg/dL (Normal) Test 11/08/25 19:50 11/08/25 12:44 SARS-CoV-2 Antigen (Rapid) Negative (NEGATIVE) Erythrocyte Sedimentation Rate 110 mm/hr (0-20) C-Reactive Protein High Sensitivity 1.85 mg/dL (<1.0) Other Laboratory Tests 11/11/25 06:50 Brief Hx & Hospital Course: Mr. Yoo is a 80 year old male with prior medical history of hypertension and ERSD in peritoneal dialysis for 14 years, who presented to [facility] with chief complaint of cough and shortness of breath. The patient states cough began approximately a week prior and is associated with progressively worsening shortness of breath on exertion. 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 Ambriz, who recommended he go to the emergency room for evaluation. He denies any fever, chest pain, nausea, vomiting, generalized weakness, malaise, and palpitations. On evaluation in the ED, he was afebrile, normocardic, normotensive, saturating 97% on 4L NC. The patient states he utilizes oxygen at home sometimes between 2-5L depending on needs. Initial labs macrocytic anemia, elevated creatinine and BUN. Chest xray reads cardiomegaly with mild CHF, however on observation there are mutifocal patches noted. The patient was admitted and started on IV antibiotics and breathing treatments. He was evaluated by nephrology who restarted his peritoneal dialysis. Echocardiogram shows LVEF is borderline at 45-50%, mild global hypokinesis, mild to moderate left ventricular hypertrophy, right ventricle size and function is normal, left atrium is mildly dilated. Possible discharge tomorrow. The patient continued on IV antibiotics, breathing treatments, and his peritoneal dialysis. On evaluation today, he is well, states he slept well, breathing has improved, and he has been able to get out of bed to perform his daily exercises. He is afebrile, normocardic, normotensive, and saturating adequately on 2L NC. Labs are stable. He is considered stable for discharge home with prescription for Levaquin for 7 days. Medications, indications, treatment regimens, and potential side effects have been explained to the patient. All questions and concerns have been addressed. He will follow up in the discharge clinic and with his PCP. The patient states he understands and agrees. Physical Exam General: The patient alert and oriented in person place and time. Patient following commands HEENT: Normocephalic, atraumatic, normal reactive pupils, EOM intact, pink conjunctiva, pink moist mucous membrane Respiratory/pulmonary: Bilateral chest expansion, no pain on palpation of chest wall, improved breath sounds bilaterally Cardiovascular: Normal RRR, normal S1 and S2, no murmurs Abdomen: Presence peritoneal dialysis catheter, abdomen nondistended, normal bowel sounds, soft, there is no pain to palpation in any of the abdominal quadrants, no palpable masses. Extremities: No deformities, there is no peripheral edema present at the lower extremities, normal pulses Skin: No rashes or pruritus, there is no sacral edema present at this time. Neurological: Intact cranial nerves with no focal neurologic deficits Goals of care and discharge planning have been discussed with the patient for over 25 minutes. Case discussed with Dr. Allison. Consults/Reason for consult Nephrology was consulted for dialysis Operations or Procedures CHEST RADIOGRAPH INDICATION: sob TECHNIQUE: Single frontal view of the chest was obtained COMPARISON: XR CHEST 1 VIEW on DOS: 04/16/24 FINDINGS: Lines and Tubes: None Lungs: No focal consolidation. Pleura: No effusion. No pneumothorax. Cardiomediastinal contours: Cardiomegaly Bones: No acute osseous abnormality. IMPRESSION: Cardiomegaly with mild CHF EXAM: Two-dimensional and M-mode echocardiogram with Doppler and color Doppler. Blood Pressure: 184/84 mmHg INDICATION Rule out structural heart disease and LVEF RISK FACTORS Height: 63, Weight: 143 DIMENSIONS LVDd 5.2 (3.8-5.7cm) LA (2D) 4.2 (1.9-4.0cm) Aortic Root 3.7 (2.0- 3.7cm) LVDs 3.9 (2.5-4.0cm) LA (MM) (1.9-4.0cm) Aortic Cusp Exc 2.0 (1.5- 2.0cm) EF (%) 50.0 (55-70%) Rt. Atrium 4.0 (1.9-4.0cm) Asc. Aorta cm Mitral Valve Mitral Mitral Stenosis E wave 0.64m/s MV Mean GR. 3mmHg A wave 1.27m/s MV Peak GR. 159mmHg E/A ratio 0.5 2D MVA cm2 DECEL Time 215ms PRESS 1/2 Time ms Aortic Valve Aortic Valve Aortic Stenosis V1 0.97m/s AO Mean GR. 3mmHg V2 1.26m/s AO Peak GR. 6mmHg LVOT Diameter 2.2 (1.8-2.4cm) Doppler SEBASTIAN 2.92cm2 Pulmonic Valve V2 0.80m/s Tricuspid Valve TR Velocity 2.35m/s RVSP 31mmHg Other Information Quality : Technically Limited Rhythm : Conclusion LVEF is borderline at 45-50%, mild global hypokinesis, mild to moderate left ventricular hypertrophy right ventricle size and function is normal left atrium is mildly dilated Condition at Discharge: Stable Final Diagnosis/Problems List Pneumonia (gram positive/gram negative) Acute hypoxic respiratory failure secondary to above ESRD on peritoneal dialysis Possible acute on chronic HFpEF Macrocytic anemia, likely chronic and due to above Hypertension Discharge Disposition: Home Discharge Instruct/Medications Diet: Cardiac 2g Na,low cholest Activity: No Restrictions, As Tolerated Scheduled Amlodipine Besylate (Amlodipine Besylate), 10 MG PO DAILY, (Reported) Levofloxacin Hemihydrate (Levofloxacin), 1 TAB PO DAILY Lisinopril (Lisinopril), 20 MG PO DAILY, (Reported) Discharge Statement: "Patient was advised to return to the ER or call 911 if any headaches, dizziness, shortness of breath, chest pain, abdominal pain, bleeding, fevers, or worsening of medical condition. Patient was counseled about treatment plan, medications, possible side effects, patientverbalized understanding. All questions were answered to the best of my ability. This discharge took greater then 30 minutes in planning, reviewing documentation, counseling the patient, and discussing with other team members." ASSESSMENT ASSESSMENT Assessment pna Visit Coding STANDARD RES Billing Provider: ROLO ALLISON DO Date of Service if different f: Nov 11, 2025 Common Visit Codes: [id number] INP/OBS CARE(MOD) WON KELLER RESIDENT Nov 11, 2025 13:12
== END 2025-11-11 20:47 | disposition home or self-care (01) | DRG 177 ==
LOC: ER 12:16 → EDUNIT# 12:16 → EDBD 12:16 → OVERFLOW 14:33 → TELE-WESTW 16:42 → TELE-CENTR 11-09 15:10 → CENTRAL 11-10 14:01
PROVIDERS: ADMIT Student in an Organized Health Care Education/Training Program; ATTEND Internal Medicine
DX: J15.69 Pneumonia due to other Gram-negative bacteria (principal); I50.33 Acute on chronic diastolic (congestive) heart failure; J96.01 Acute respiratory failure with hypoxia; N18.6 End stage renal disease; I13.2 Hypertensive heart and chronic kidney disease with heart failure and with stage 5 chronic kidney disease, or end stage renal disease; N25.81 Secondary hyperparathyroidism of renal origin; E83.39 Other disorders of phosphorus metabolism; D63.1 Anemia in chronic kidney disease; Z99.2 Dependence on renal dialysis; J15.9 Unspecified bacterial pneumonia; Z20.822 Contact with and (suspected) exposure to COVID-19; D53.9 Nutritional anemia, unspecified; Z86.14 Personal history of Methicillin resistant Staphylococcus aureus infection; Z87.01 Personal history of pneumonia (recurrent)
CPT/HCPCS: 36415; 71045; 80048; 80053; 81001; 82306; 82607; 82746; 83880; 83970; 84100; 84439; 84443; 85025; 85652; 86141; 87071; 87081; 87205; 87426; 87804; 89051; 93306; 94640; G0378